=== PATIENT | female | born 2000 | race Hispanic/Latino ===

== ENCOUNTER 2021-04-21 13:11 | Outpatient (CLI) | payer OTHER ==
[2021-04-21 14:40] VITALS: BP 111/68
[2021-04-21 14:53] LABS: Hematocrit 43.4 % (30.3-42.9); Hemoglobin 14.2 gm/dl (10.1-14.3); Mean Corpuscular HGB Conc 33 % (30-34); Mean Corpuscular Volume 89 fl (79-97); Platelet Count 144 K/mm3 (140-440); Red Blood Count 4.91 M/mm3 (3.65-5.03); Red Cell Distribution Width 15.3 % (13.2-15.2)
[2021-04-21 14:57] LABS: Bacteria,Urine 1+ /HPF (Negative); Bilirubin,Urine NEG (Negative); Blood,Urine NEG (Negative); Color,Urine Yellow (Yellow); Mucus,Urine FEW /HPF; Protein,Urine <15 mg/dL mg/dL (Negative); Urobilinogen,Urine < 2.0 mg/dL (<2.0)
[2021-04-21 15:15] LABS: Alanine Aminotransferase 9 units/L (7-56); Uric Acid 4.7 mg/dL (3.5-7.6)
[2021-04-21 15:33] LABS: Creatinine,Urine 149.5 mg/dL (0.1-20.0); Protein/Creatinine Ratio,Urine 0.13
== END 2021-04-21 15:54 | disposition home or self-care (01) ==
LOC: TRG 13:11 → APU 14:00 → TRG 15:54
PROVIDERS: ATTEND Obstetrics & Gynecology
DX: O09.93 Supervision of high risk pregnancy, unspecified, third trimester (principal); R60.0 Localized edema; R20.0 Anesthesia of skin; Z3A.33 33 weeks gestation of pregnancy
CPT/HCPCS: 36415; 59025; 81001; 82565; 82570; 83615; 84156; 84450; 84460; 84550; 85027; 87086

== ENCOUNTER 2021-05-07 13:01 | Outpatient (CLI) | payer OTHER ==
[2021-05-07 13:43] VITALS: BP 131/73
== END 2021-05-07 14:55 | disposition home or self-care (01) ==
LOC: TRG 13:01 → APU 13:03 → TRG 14:55
PROVIDERS: ATTEND Obstetrics & Gynecology
DX: Z34.93 Encounter for supervision of normal pregnancy, unspecified, third trimester (principal); Z3A.38 38 weeks gestation of pregnancy
CPT/HCPCS: 36415; 59025; 82962; 84112